=== PATIENT | female | born 1970 ===

== ENCOUNTER 2020-09-20 21:35 | Emergency (ER) | payer MEDICAID, OTHER ==
--- NOTE | 2020-09-20 22:13 | EDM.PDOC ---
ED HPI GENERAL MEDICAL PROBLEM - General Chief Complaint: Respiratory Problem Stated Complaint: Cough Time Seen by Provider: 09/20/20 22:05 Source of Information: Reports: Patient History Limitations: Reports: No Limitations - History of Present Illness INITIAL COMMENTS - FREE TEXT/NARRATIVE: patient presented to the ER with a c/o cough for a week. Reports she had her first COVID shot 3 weeks ago. No fever or chills dry cough Worse with activities, with deep breath or when lying down in bed. Better with cold air Non smoker, no h/o asthma Onset: Gradual Duration: Week(s): (1) ED ROS GENERAL - Review of Systems Review Of Systems: See Below Constitutional: Reports: No Symptoms HEENT: Reports: No Symptoms Respiratory: Reports: Cough Cardiovascular: Reports: No Symptoms GI/Abdominal: Reports: No Symptoms Musculoskeletal: Reports: No Symptoms Skin: Reports: No Symptoms Neurological: Reports: No Symptoms ED EXAM, GENERAL - Physical Exam Exam: See Below Exam Limited By: No Limitations General Appearance: Alert, WD/WN, No Apparent Distress Eye Exam: Bilateral Eye: EOMI Neck: Normal Inspection Respiratory/Chest: No Respiratory Distress, Lungs Clear Cardiovascular: Regular Rate, Rhythm GI/Abdominal: Normal Bowel Sounds Neurological: Alert, Oriented, No Motor/Sensory Deficits Course - Orders/Labs/Meds Orders: Active Orders 24 hr Category Date Time Status RT Aerosol Therapy [RC] ASDIRECTED Care 09/20/20 23:19 Ordered Albuterol/Ipratropium [DuoNeb 3.0-0.5 MG/3 ML] Med 09/20/20 23:19 Stat 3 ml NEB NOW STA predniSONE Med 09/20/20 23:19 Once 10 mg PO ONETIME ONE Medication Orders Prednisone (Prednisone 10 Mg Tab) 10 mg PO ONETIME ONE Stop: 09/20/20 23:20 Labs: Laboratory Tests 09/20/20 Range/Units 19:50 SARS-CoV-2 RNA (AUDREY) Negative (NEGATIVE) Meds: Medications Generic Name Dose Route Start Last Admin Trade Name Freq PRN Reason Stop Dose Admin Prednisone 10 mg 09/20/20 23:19 Prednisone 10 Mg Tab PO 09/20/20 23:20 ONETIME ONE - Re-Assessments/Exams Free Text/Narrative Re-Assessment/Exam: 09/20/20 23:21 COVID test negative DuoNeb was given - patient reported improvement in her symptoms Departure - Departure Time of Disposition: 23:22 Disposition: Home, Self-Care 01 Condition: Good Clinical Impression: Cough Acute bronchiolitis Qualifiers: Bronchiolitis organism: unspecified organism Qualified Code(s): J21.9 - Acute bronchiolitis, unspecified - Discharge Information *PRESCRIPTION DRUG MONITORING PROGRAM REVIEWED*: Not Applicable *COPY OF PRESCRIPTION DRUG MONITORING REPORT IN PATIENT JESSICA: Not Applicable Instructions: Cough, Adult, [id number] Forms: ED Department Discharge - Problem List & Annotations (1) Acute bronchiolitis SNOMED Code(s): 5839993 Code(s): J21.9 - ACUTE BRONCHIOLITIS, UNSPECIFIED Status: Acute Priority: Low Qualifiers: Bronchiolitis organism: unspecified organism Qualified Code(s): J21.9 - Acute bronchiolitis, unspecified (2) Cough SNOMED Code(s): 17712702 Code(s): R05 - COUGH Status: Acute Priority: Low - Problem List Review Problem List Initiated/Reviewed/Updated: Yes - My Orders Last 24 Hours: My Active Orders 09/20/20 23:19 RT Aerosol Therapy [RC] ASDIRECTED predniSONE 10 mg PO ONETIME ONE 09/20/20 23:19 Albuterol/Ipratropium [DuoNeb 3.0-0.5 MG/3 ML] 3 ml NEB NOW STA - Assessment/Plan Last 24 Hours: My Active Orders 09/20/20 23:19 RT Aerosol Therapy [RC] ASDIRECTED predniSONE 10 mg PO ONETIME ONE 09/20/20 23:19 Albuterol/Ipratropium [DuoNeb 3.0-0.5 MG/3 ML] 3 ml NEB NOW STA Plan: - use inhaler and steroids as prescribed - increase fluids intake - follow up with your PCP in 1-2 weeks if symptoms persisted - return to the ER if symptoms got worse or any concerns
[2020-09-20] MEDS: Albuterol/Ipratropium 3.0-0.5 MG/3 ML Neb Soln NEB STA (23:20)
[2020-09-20] MEDS: predniSONE 10 MG Tab PO ONE (23:30)
== END 2020-09-20 23:45 | disposition home or self-care (01) ==
LOC: LB.ED 21:35
DX: J21.9 Acute bronchiolitis, unspecified (principal); Z20.822 Contact with and (suspected) exposure to COVID-19
CPT/HCPCS: 87635; 99283; J7512; J7620-GY; U0002